=== PATIENT | female | born 1975 | race African-American/Black ===

== ENCOUNTER 2018-09-08 00:04 | Emergency (ER) | payer OTHER ==
[~2018-09-08] VITALS: Ht 165.1 cm; Wt 83.9 kg
[~2018-09-08 00:04] MED LIST: BACTRIM DS TAB1 EACH PO; PERCOCET 5-3251 EACH PO; TENORMIN50 MG PO
[2018-09-08 00:45] LABS: WBC 3.1 thou/uL (4.0-11.0)
[2018-09-08 00:46] LABS: ABSOLUTE NEUTROPHILS 1.9 thou/uL (1.4-8.2); BASOPHILS 0.5 % (0.0-2.0); EOSINOPHILS 0.1 % (0.0-3.0); HEMATOCRIT 37.1 % (37.0-47.0); HEMOGLOBIN 12.2 gm/dL (12.0-15.0); LYMPHOCYTES 25.8 % (24.0-44.0); MCH 25.8 pg (26.0-34.0); MCHC 32.8 g/dL (28.0-37.0); MCV 78.5 fL (80.0-100.0); MONOCYTES 11.7 % (1.0-8.0); PLATELET COUNT 162 thou/uL (150-400); POLYS 61.9 % (36.0-66.0); RBC 4.73 mil/uL (4.20-5.00); RDW 18.3 % (10.5-14.5)
[2018-09-08 00:48] LABS: URINE BILIRUBIN NEGATIVE (Negative); URINE BLOOD TRACE (Negative); URINE CLARITY CLEAR; URINE COLOR YELLOW; URINE GLUCOSE-RANDOM* NEGATIVE (Negative); URINE KETONES 1+ (Negative); URINE LEUKOCYTES-REFLEX NEGATIVE (Negative); URINE NITRITE-REFLEX NEGATIVE (Negative); URINE PROTEIN (DIPSTICK) 3+ (Negative); URINE SPECIFIC GRAVITY >= 1.030 (1.005-1.035); URINE UROBILINOGEN 0.2 E.U./dl (0.2-1.0)
[2018-09-08 00:55] LABS: CALCIUM 9.8 mg/dL (8.5-10.1); CREATININE 1.2 mg/dL (0.6-1.0); POTASSIUM 4.2 mmol/L (3.5-5.1)
[2018-09-08 01:00] LABS: AMP/METHAMP Negative (Negative); BARBITURATES Negative (Negative); BENZODIAZEPINES POSITIVE (Negative); COCAINE Negative (Negative); METHADONE POSITIVE (Negative); OPIATES Negative (Negative); PCP Negative (Negative)
[2018-09-08 01:04] LABS: MAGNESIUM 2.2 mg/dL (1.8-2.4); TOTAL BILIRUBIN 0.4 mg/dL (<0.1-1.0); TROPONIN-I 0.07 ng/mL (<0.06)
[2018-09-08] MEDS ORDERED: XANAX 0.5 MG0.5 MG PO (01:06)
[2018-09-08] MEDS ORDERED: METHADONE HCL5 MG PO (01:07)
[2018-09-08] MEDS ORDERED: DILAUDID 4 MG TA4 M1 PO (01:07)
[2018-09-08] MEDS ORDERED: TESSALON PERLE100 MG PO (01:08)
[2018-09-08] MEDS ORDERED: METHOCARBAMOL500 M2 PO (01:08)
[2018-09-08] MEDS ORDERED: NEURONTIN 300300 M1 PO (01:09)
[2018-09-08] MEDS ORDERED: MUCINEX1200 MG PO (01:09)
[2018-09-08] MEDS ORDERED: LANTUS SOL100 UNIT/1 SUBQ (01:09)
[2018-09-08] MEDS ORDERED: HUMALOG100 UNIT/2 SUBQ (01:09)
[2018-09-08] MEDS ORDERED: LISINOPRIL10 MG PO (01:10)
[2018-09-08 01:18] LABS: FINE GRANULAR CASTS 0-3 Few /LPF (None Seen); HYALINE CASTS 0-3 Few /LPF (None Seen); MUCUS 0-3 Light strn/LPF (None Seen); SQUAMOUS 0-3 Few /LPF (0-3); URINE RBC 3-10 Few /HPF (0-2); URINE WBC-REFLEX 6-15 Few /HPF (0-5); WBC CLUMPS Few (None Seen)
[2018-09-08 01:19] LABS: CRYSTALS None Seen /LPF (None Seen)
[2018-09-08] MEDS ORDERED: BACLOFEN20 MG PO (01:29)
[2018-09-08] MEDS ORDERED: FENTANYL PATCH75 MCG TRANSDERM (01:30)
[2018-09-08 03:10] VITALS: BP 94/58
--- NOTE | 2018-09-08 08:23 | EKG ---
[place] [address] [place] [address] ELECTROCARDIOGRAM REPORT Name: FLORA PALAFOX Room #: DEP ELDA Brantley#: [id number] Admission: 09/08/18 Attend Phys: Discharge: 09/08/18 Date of : 73 Report #: [id number] THIS REPORT FOR: //name// [facility] ED Test Date: 2018-09-08 Test Time: 01:02:06 Pat Name: FLORA PALAFOX Department: Room: Gender: F [employer]: HORACE : 1975 Requested By: Germán Gant Order Number: [id number] MD: Steve Knapp Measurements Intervals Star Rate: 114 P: 59 CT: 131 QRS: 31 QRSD: 89 T: 32 QT: 287 QTc: 396 Interpretive Statements Sinus tachycardia ST elev, probable normal early repol pattern No previous ECG available for comparison Electronically Signed On 09-08-2018 8:23:10 [employer] by Steve Knapp [email or web address] <ELECTRONICALLY SIGNED> By: Steve Knapp MD, [facility] 09/08/18 0823 010 0102 Steve Knapp MD, FACC /EPI
== END 2018-09-08 03:35 | disposition short-term general hospital (02) ==
LOC: ER 00:04
PROVIDERS: Emergency Medicine
DX: A41.9 Sepsis, unspecified organism (principal); N39.0 Urinary tract infection, site not specified; E86.0 Dehydration; R41.82 Altered mental status, unspecified; C79.81 Secondary malignant neoplasm of breast